=== PATIENT | female | born 1960 | race Caucasian/White ===

== ENCOUNTER 2023-11-18 09:21 | Day surgery (SDC) | payer OTHER ==
[~2023-11-18 09:21] MED LIST: BETADINE 5% OPHTHALMIC 30 ML OP ONE; NON-FORMULARY ITEM OP ONE; cefUROXime sodium 0.005 GM in Sodium Chloride Flush 30 ML*** 0.5 ML IJ ONE
[2023-11-18] MEDS ORDERED: Lactated Ringers 1,000 ML IV ONE (10:02)
[2023-11-18] MEDS: Lactated Ringers 1,000 ML IV SCH (10:04)
[2023-11-18] MEDS: TETRACAINE 0.5% STERI-UNIT SOL OP ONE ×2 (10:30→10:56)
[2023-11-18] MEDS: Ak-Dilate OPHTHALMIC*** 1.065 ML, TROPICAMIDE 1.065 ML, GATIFLOXACIN 0.5% OPHTH DROPS 0... OP ONE (10:34)
[2023-11-18] MEDS ORDERED: Epinephrine Preservative Free 1 MG/ML IJ ONE (11:15)
[2023-11-18] MEDS ORDERED: Zofran 4 MG/2 ML VIAL IV PRN (11:45)
[2023-11-18] MEDS ORDERED: DIPRIVAN 200 MG/20 ML IV ONE ×2 (13:35)
[2023-11-18 14:03] VITALS: RESP 18; TEMP 97.8
[2023-11-18] MEDS: ACETAZOLAMIDE 250 MG TABLET PO ONE (14:06)
[2023-11-18 14:10] VITALS: O2SAT 97
[2023-11-18 14:28] VITALS: BP 120/73; PULSE 62
== END 2023-11-18 14:25 | disposition home or self-care (01) ==
LOC: SDC 09:21
PROVIDERS: ATTEND Ophthalmology
DX: H25.811 Combined forms of age-related cataract, right eye (principal)
CPT/HCPCS: J0171; J2704; A9270-GY

== ENCOUNTER 2023-12-19 09:07 | Day surgery (SDC) | payer OTHER ==
[2023-12-19] MEDS ORDERED: Zofran 4 MG/2 ML VIAL IV PRN (11:00)
[2023-12-19] MEDS ORDERED: Lactated Ringers 1,000 ML IV ONE (11:56)
[2023-12-19] MEDS: Lactated Ringers 1,000 ML IV SCH (12:08)
[2023-12-19] MEDS: Pepcid 20 MG VIAL IV ONE (12:09)
[2023-12-19] MEDS: Reglan 10 MG/2 ML IV ONE (12:09)
[2023-12-19] MEDS: TETRACAINE 0.5% STERI-UNIT SOL OP ONE ×2 (12:11→12:41)
[2023-12-19] MEDS: Ak-Dilate OPHTHALMIC*** 1.065 ML, Cyclogyl 1% OPHTH SOL 1.065 ML, GATIFLOXACIN 0.5% OPH... OP ONE (12:14)
[2023-12-19] MEDS ORDERED: Epinephrine Preservative Free 1 MG/ML IJ ONE (14:00)
[2023-12-19] MEDS ORDERED: DIPRIVAN 200 MG/20 ML IV ONE ×2 (14:16→14:23)
[2023-12-19 14:58] VITALS: RESP 16
[2023-12-19] MEDS: ACETAZOLAMIDE 250 MG TABLET PO ONE (14:59)
[2023-12-19 15:11] VITALS: BP 131/70; PULSE 70; TEMP 97.4; O2SAT 97
== END 2023-12-19 15:18 | disposition home or self-care (01) ==
LOC: SDC 09:07
PROVIDERS: ATTEND Ophthalmology
DX: H25.811 Combined forms of age-related cataract, right eye (principal)
CPT/HCPCS: C1780; J0171; J2704; A9270-GY